=== PATIENT | male | born 1950 | race Caucasian/White ===

== ENCOUNTER → 2018-04-20 | Outpatient (CLI) | payer OTHER, BC | LOC: FIMAGING 14:32 | PROVIDERS: ATTEND Family Medicine | DX: E04.1 Nontoxic single thyroid nodule (principal) ==

== ENCOUNTER → 2018-10-08 | Outpatient (CLI) | payer OTHER, BC | LOC: FIMAGING 16:28 | PROVIDERS: ATTEND Family Medicine | DX: R31.21 Asymptomatic microscopic hematuria (principal); N28.1 Cyst of kidney, acquired; N13.30 Unspecified hydronephrosis ==

== ENCOUNTER → 2018-10-10 | Outpatient (CLI) | payer OTHER, BC | LOC: FIMAGING 10:05 | PROVIDERS: ATTEND Family Medicine | DX: N20.0 Calculus of kidney (principal); I87.8 Other specified disorders of veins ==

== ENCOUNTER 2018-10-30 06:10 | Day surgery (SDC) | payer OTHER, BC ==
--- NOTE | 2018-10-29 11:18 | GHP ---
[f rep st] PREOP HISTORY AND PHYSICAL DATE OF ADMISSION: 10/30/2018 The patient presented with a posterior heel spur in May of 2018. Had developed symptoms consist ent repetitive pain which had been affecting his activity very slowly over the last 6 months or so. He has tried changing shoes, padding, decreased activity, all of which have failed to alleviate his s ymptoms. 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 [place] 3 [place]. In the summer he enjoys hiking, swimming, cycling. He is an e xtremely healthy active individual. At 68 years of age he is fully retired. 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 PAST MEDICAL HISTORY: He has had supraventricular tachycardia on occasion in the past, but it is sta ble. He does see a class b driver on a regular basis. He has very mild asthma. Takes Advair 100/50 i nhaler daily. He is on diazepam on occasion. He has some bouts with anxiety. 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 ALLERGIES: No known drug allergies. SOCIAL HISTORY: He denies ever using tobacco products. Alcohol is rare, less than 1-2 ounces per we ek. REVIEW OF SYSTEMS: In our preop discussion, he denied any recent fever or chills. Denied any headac hes, vision changes, hearing difficulties. He denies any cardiac arrhythmias, chest pain, shortness of breath, GI distress, neurologic, dermatologic, or other musculoskeletal problems. He just recentl y went [place] that [place] PHYSICAL EXAMINATION: Objectively he has pulses 2/4 dorsal pedal and posterior tibial arteries. Nor mal capillary fill less than 5 seconds to digits x10. NEUROLOGIC: Sharp-dull light touch. Proprioc eption all intact and symmetric to the digital level. SKIN: Normal temperature, texture, turgor, no rmal hair distribution down to the digital level. MUSCULOSKELETAL: Showed 5/5 manual muscle testing to the extrinsic, as well as intrinsic muscles of both legs and feet with no evidence of weakness or loss of strength either extremity. He has a bony prominence on the posterior lateral aspect of the right heel, which is palpably tender. It is isolated to the lateral 25%-30% of the insertion of the Achilles tendon on the right lower extremity. He has pain-free range of motion of the ankle, subtala r, midtarsal joints on both feet. He can walk fairly well as long shoes do not rub on this large pos terior spur. X-rays were taken, show a posterior lateral spur, classic, at the insertion of the Achilles tendon di bridgett. Again, I only feel that less than 30% of the Achilles tendon is actually involved with the s pur itself. ASSESSMENT/PLAN: Posterior calcaneal spur with insertional Achilles tendinitis, right foot. Planned procedure is excision spur with possible primary repair of the Achilles tendon. Preoperatively, we discussed risks and complications of the procedure, including residual pain, delayed healing. Patien t understood. Consent form was signed. He was given both oral and written postop instructions along with a prescription for hydrocodone 5/325 #30, 1 tab p.o. q.4-6/h p.r.n. pain. He will be followed up x3 days postop at [facility]. He was given my cell phone number for 24-hour call should he have any problems or questions immediately postop over the weekend. /[id number]/MODL
[2018-10-30] MEDS ORDERED: LR 1,000 ML IV ONE (06:17)
[2018-10-30] MEDS ORDERED: LIDOCAINE 1% 300 MG/30 ML SDV ONE (07:07)
[2018-10-30] MEDS ORDERED: BUPIVACAINE/EPI 0.25% 30 ML SDV ONE (07:07)
[2018-10-30] MEDS ORDERED: ceFAZolin 1 GM/5 ML SYR ONE (07:08)
--- NOTE | 2018-10-30 07:25 | PDANEPAE ---
ANE History of Present Illness R ankle bone spur here for removal ANE Past Medical History - Cardiovascular History Hx Hypertension: No Hx Arrhythmias: Yes Hx Chest Pain: No Hx Coronary Artery / Peripheral Vascular Disease: No Hx CHF / Valvular Disease: No Hx Palpitations: No - Pulmonary History Hx COPD: No Hx Asthma/Reactive Airway Disease: Yes Hx Recent Upper Respiratory Infection: No Hx Oxygen in Use at Home: No Hx Sleep Apnea: No Sleep Apnea Screening Result - Last Documented: Negative Pulmonary History Comment: USES INHALER - Neurologic History Hx Cerebrovascular Accident: No Hx Seizures: No Hx Dementia: No - Endocrine History Hx Diabetes: No - Renal History Hx Renal Disorders: No - Liver History Hx Hepatic Disorders: No - Neurological & Psychiatric Hx Hx Neurological and Psychiatric Disorders: No - Cancer History Hx Cancer: No - Congenital Disorder History Hx Congenital Disorders: No - GI History Hx Gastrointestinal Disorders: No - Other Health History Other Health History: NONE - Chronic Pain History Chronic Pain: No - Surgical History Prior Surgeries: DEFIB BATTERY REPLACED 2016. ICD placed 2004 ANE Review of Systems Review of Systems: - Exercise capacity METS (RN): 6 METS - Pacemaker Pacemaker Type: Permanent Pacer/Defib Pacemaker Credit Analyst: [employer] Pacemaker Model: Evera S VR [id number] Pacemaker Mode: VVI Date Pacemaker Last Checked: 08/05/18 ANE Patient History - Allergies Allergies/Adverse Reactions: No Known Allergies Allergy (Verified 10/26/18 10:36) - Home Medications Home Medications: Albuterol [Proventil] 04/19/11 [Last Taken 06/29/18] Fluticasone/Salmeterol [Advair 100-50 Diskus] 04/19/11 [Last Taken 10/30/18 0530] Cholecalciferol (Vitd3)/Vit K2 10/26/18 [Last Taken 10/26/18] Fish Oil 1000 mg (*) 10/26/18 [Last Taken 10/26/18] Multivitamin 10/26/18 [Last Taken 10/26/18] Vitamin C 10/26/18 [Last Taken 10/26/18] Zinc 10/26/18 [Last Taken 10/23/18] - NPO status NPO Since - Liquids (Date): 10/29/18 NPO Since - Liquids (Time): 22:00 NPO Since - Solids (Date): 10/29/18 NPO Since - Solids (Time): 22:00 - Anes Hx Anes Hx: no prior problems - Smoking Hx Smoking Status: Never smoked - Alcohol Use Alcohol Use: Occasionally - Family Anes Hx Family Anes Hx: none Family Hx Anesthesia Complications: NONE ANE Labs/Vital Signs - Vital Signs Blood Pressure: 117/88 Heart Rate: 63 Respiratory Rate: 16 O2 Sat (%): 96 Height: 185.42 cm Weight: 86.183 kg ANE Physical Exam - Airway Neck exam: FROM Mallampati Score: Class 2 Mouth exam: normal dental/mouth exam - Pulmonary Pulmonary: no respiratory distress, clear to auscultation - Cardiovascular Cardiovascular: regular rate and rhythym, no murmur, rub, or gallop - ASA Status ASA Status: III ANE Anesthesia Plan Anesthesia Plan: general endotracheal anesthesia, GA w LMA
[2018-10-30] MEDS ORDERED: PROPOFOL 200 MG/20 ML VIAL ONE (07:48)
[2018-10-30] MEDS ORDERED: LIDOCAINE 2% 100 MG/5 ML SYR ONE (07:48)
[2018-10-30] MEDS ORDERED: ROCURONIUM 50 MG/5 ML VIAL ONE (07:48)
[2018-10-30] MEDS ORDERED: CEFAZOLIN 2 GM/DEXTROSE/100 ML BAG IV ONE (07:48)
[2018-10-30] MEDS ORDERED: fentaNYL 100 MCG/2 ML INJ ONE (07:48)
[2018-10-30] MEDS ORDERED: ceFAZolin 2 GM/DEXTROSE 100 ML IV ONE (07:50)
[2018-10-30] MEDS ORDERED: HYDROCODONE/APAP 5/325 TAB PO PRN (08:19)
[2018-10-30] MEDS ORDERED: oxyCODONE IR 5 MG TAB PO PRN (08:19)
[2018-10-30] MEDS ORDERED: NALOXONE HCL 0.4 MG/ML INJ IVP PRN (08:19)
[2018-10-30] MEDS ORDERED: fentaNYL 100 MCG/2 ML INJ IVP PRN (08:19)
[2018-10-30] MEDS ORDERED: ACETAMINOPHEN 500 MG TAB PO PRN (08:19)
[2018-10-30] MEDS ORDERED: HYDROmorphONE/DILAUDID 1 MG/ML INJ IVP PRN (08:19)
[2018-10-30] MEDS ORDERED: ONDANSETRON 4 MG/2 ML VIAL IVP PRN (08:19)
[2018-10-30] MEDS ORDERED: ONDANSETRON 4 MG/2 ML VIAL ONE (08:32)
[2018-10-30] MEDS ORDERED: DEXAMETHASONE 4 MG/ML VIAL ONE (08:32)
--- NOTE | 2018-10-30 09:04 | POSTANESTH ---
Post Anesthetic Evaluation Cardiovascular Status: Normal, Stable, Similar to Pre-Op Cond Respiratory Status: Normal, Stable, Similar to Pre-op Cond. Level of Consciousness/Mental Status: Can Participate in Eval, Alert and Oriented Pain Control: Adequate, Prn Tx Ordered Nausea/Vomiting Control: Adequate, Prn Tx Ordered Complications Possibly Related to Anesthesia: None Noted
[2018-10-30 10:06] VITALS: BP 146/104
== END 2018-10-30 10:30 | disposition home or self-care (01) ==
LOC: FSGY 06:10
PROVIDERS: ATTEND Podiatrist
PROC: 0LQN0ZZ Repair Right Lower Leg Tendon, Open Approach (ICD-10-PCS; principal; 2018-10-30 07:45)
PROC: 0QBL0ZZ Excision of Right Tarsal, Open Approach (ICD-10-PCS; principal; 2018-10-30 07:45)
DX: M77.31 Calcaneal spur, right foot (principal); M76.61 Achilles tendinitis, right leg; Z95.810 Presence of automatic (implantable) cardiac defibrillator; J45.909 Unspecified asthma, uncomplicated
CPT/HCPCS: J0690; J1100; J2001; J2405; J2704; J3010